=== PATIENT | female | born 2000 | race African-American/Black ===

== ENCOUNTER 2019-01-10 11:35 | Emergency (ER) | payer BC ==
[2019-01-10 14:58] LABS: Influenza A Molecular NEGATIVE (Negative); Influenza B Molecular NEGATIVE (Negative)
--- NOTE | 2019-01-10 14:58 | ED ---
Influenza-Like Illness - HPI Summary HPI Summary: Patient is a 18-year-old female who presents emergency department for on going ear/nasal congestion, headache, cough, fever, body aches times one week. Patient notes she was seen at [facility] a few days ago and prescribed Omnicef. Patient states her symptoms have persisted despite antibiotic. She is taking Tylenol or Motrin for pain and fever. She denies associated symptoms of abdominal pain, vomiting, diarrhea, neck pain, urinary symptoms. Patient notes that she had blood work done at the [facility] and was unremarkable per patient. No past medical history. Immunizations are up-to-date. Symptoms are in severity. No current modifying factors. - History of Current Complaint Chief Complaint: EDFluSymptoms Time Seen by Provider: 01/10/19 14:18 Hx Obtained From: Patient - Allergy/Home Medications Allergies/Adverse Reactions: Allergies Allergy/AdvReac Type Severity Reaction Status Date / Time Penicillins Allergy Severe Rash Verified 01/10/19 11:40 PMH/Surg Hx/FS Hx/Imm Hx Previously Healthy: Yes Infectious Disease History: No Infectious Disease History: Denies: Traveled Outside the [place] in Last 30 Days - Family History Known Family History: Positive: Non-Contributory - Social History Occupation: Student Lives: Dormitory/Roommates Alcohol Use: Occasionally Substance Use Type: Reports: None Smoking Status (MU): Never Smoked Tobacco Review of Systems Positive: Fever, Chills Positive: Ear Ache, Nasal Discharge. Negative: Sore Throat Cardiovascular: Negative Positive: Cough. Negative: Shortness Of Breath Gastrointestinal: Negative Negative: Abdominal Pain, Vomiting, Diarrhea Genitourinary: Negative Negative: dysuria Skin: Negative Negative: Rash Positive: Headache. Negative: Weakness, Paresthesia, Numbness, Syncope All Other Systems Reviewed And Are Negative: Yes Physical Exam Triage Information Reviewed: Yes Vital Signs On Initial Exam: Initial Vitals Temp Pulse Resp BP Pulse Ox 98.1 F 115 16 138/93 98 01/10/19 11:37 01/10/19 11:37 01/10/19 11:37 01/10/19 11:37 01/10/19 11:37 Vital Signs Reviewed: Yes Appearance: Positive: Well-Appearing - Pt. sitting up in bed in NAD. Appears tired but nontoxic . Skin: Positive: Warm, Dry Head/Face: Positive: Normal Head/Face Inspection Eyes: Positive: Normal ENT: Positive: Pharynx normal, Nasal congestion, Other - TMs slightly erythematous bilaterally and bulging.. Negative: Tonsillar swelling, Tonsillar exudate, Sinus tenderness Neck: Positive: Supple, Nontender, No Lymphadenopathy. Negative: Nuchal Rigidity Respiratory/Lung Sounds: Positive: Clear to Auscultation, Breath Sounds Present. Negative: Rales, Rhonchi, Wheezes Cardiovascular: Positive: Normal, RRR Musculoskeletal: Positive: Normal, Strength/ROM Intact Neurological: Positive: Normal, CN Intact II-III Psychiatric: Positive: Affect/Mood Appropriate Diagnostics - Vital Signs Vital Signs Temp Pulse Resp BP Pulse Ox 01/10/19 13:04 98.7 F 100 16 126/92 98 01/10/19 11:37 98.1 F 115 16 138/93 98 - Laboratory Lab Statement: Any lab studies that have been ordered have been reviewed, and results considered in the medical decision making process. Flu Symptom Course/Dx - Course Course Of Treatment: Patient presenting with the above symptoms. She is afebrile and well-appearing in the ER. No meningismal signs. Given ongoing cough and fever chest x-ray was ordered as well as flu swab. Chest x-ray negative for acute findings, reading per radiology. Negative flu swab. Patient does have fluid behind bilateral TMs. 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 Advised patient to continue supportive care. Follow-up with [facility]. Reevaluation 2-3 days. To return to the ER symptoms change or worsen. Patient understands and agrees with plan. - Diagnoses Differential Diagnosis/HQI/PQRI: Positive: Bronchitis, Influenza, Upper Respiratory Infection Provider Diagnoses: Viral syndrome, Serous otitis media Discharge ED - Sign-Out/Discharge Documenting (check all that apply): Patient Departure Patient Received Moderate/Deep Sedation with Procedure: No - Discharge Plan Condition: Good Disposition: HOME Patient Education Materials: Viral Syndrome (ED), Serous Otitis Media (ED) Forms: *School Release Referrals: [facility] [Outside] Additional Instructions: Call [facility] tomorrow for a close follow up appointment Increase fluids and rest Continue Tylenol/Motrin and decongestant Return to ER if symptoms change or worsen - Billing Disposition and Condition Condition: GOOD Disposition: Home
[2019-01-10 16:12] VITALS: BP 127/71
== END 2019-01-10 16:13 | disposition home or self-care (01) ==
LOC: ED 11:35
DX: B34.9 Viral infection, unspecified (principal); H65.93 Unspecified nonsuppurative otitis media, bilateral; Z88.0 Allergy status to penicillin
CPT/HCPCS: 71046; 99282

== ENCOUNTER 2019-01-17 13:40 | Emergency (ER) | payer BC ==
--- NOTE | 2019-01-17 17:34 | ED ---
Throat Pain/Nasal Congestion - HPI Summary HPI Summary: This pt is a 18 Y/O F presenting to [facility] with a CC of pain behind her R eye that has been present for 3 days, starting on 01/14/19 and is currently rated an 8/10 in severity. She states that she has nasal congestion, coughing, fluid built up behind her ears, and has had intermittent high fevers. She states that her pain increases when she bends over or rotates her head quickly. She denies any visual changes. She has a PMHx of a recent illness two weeks ago and a 10 day Tx with ABX. She has a PMHx of migraines but states that this is atypical. - History of Current Complaint Chief Complaint: EDEyeProblem Time Seen by Provider: 01/17/19 17:11 Hx Obtained From: Patient Onset/Duration: Sudden Onset, Lasting Days - 3, Still Present Severity: Severe - 8/10 Associated Signs And Symptoms: Positive: Sinus Discomfort, Nasal Discharge Cough: Nonproductive - Allergies/Home Medications Allergies/Adverse Reactions: Allergies Allergy/AdvReac Type Severity Reaction Status Date / Time Penicillins Allergy Severe Rash Verified 01/17/19 13:49 Home Medications: Home Medications Norgestimate-Ethinyl Estradiol [Lkl-Lo-Ppyevmqs 0.18/0.215/0.25 mg-25 Mcg] 1 tab PO DAILY 01/17/19 [History Confirmed 01/17/19] PMH/Surg Hx/FS Hx/Imm Hx Previously Healthy: Yes - Immunization History Immunizations Up to Date: Yes Infectious Disease History: No Infectious Disease History: Denies: Traveled Outside the [place] in Last 30 Days - Family History Known Family History: Positive: Non-Contributory - Social History Alcohol Use: Occasionally Substance Use Type: Reports: None Smoking Status (MU): Never Smoked Tobacco Review of Systems Positive: Fever Eyes: Negative - visual changes , Other - Pain behind her R eye ENT: Other - nasal congestion Positive: Ear Ache - Reports fluid build up behind her ears Positive: Cough All Other Systems Reviewed And Are Negative: Yes Physical Exam - Summary Physical Exam Summary: Appearance: The patient is well-nourished in no acute distress and in no acute pain. Skin: The skin is warm and dry and skin color reflects adequate perfusion. HEENT: The head is normocephalic and atraumatic. Her R frontal sinus does not react to light as well as the L. The conjunctivae are clear and without drainage. Nares are patent and without drainage. Mouth reveals moist mucous membranes and the throat is without erythema and exudate. The external ears are intact. The ear canals are patent and without drainage. The tympanic membranes are intact. Neck: The neck is supple with full range of motion and non-tender. There are no carotid bruits. There is no neck vein distension. Respiratory: Chest is non-tender. Lungs are clear to auscultation and breath sounds are symmetrical and equal. Cardiovascular: Heart is regular rate and rhythm. There is no murmur or rub auscultated. There is no peripheral edema and pulses are symmetrical and equal. Abdomen: The abdomen is soft and non-tender. There are normal bowel sounds heard in all four quadrants and there is no organomegaly palpated. Musculoskeletal: There is no back tenderness noted. Extremities are non-tender with full range of motion. There is good capillary refill. There is no peripheral edema or calf tenderness elicited. Neurological: Patient is alert and oriented to person, place and time. The patient has symmetrical motor strength in all four extremities. Cranial nerves are grossly intact. Deep tendon reflexes are symmetrical and equal in all four extremities. Triage Information Reviewed: Yes Vital Signs On Initial Exam: Initial Vitals Temp Pulse Resp BP Pulse Ox 98.8 F 97 16 139/94 98 01/17/19 13:45 01/17/19 13:45 01/17/19 13:45 01/17/19 13:45 01/17/19 13:45 Vital Signs Reviewed: Yes Diagnostics - Vital Signs Vital Signs Temp Pulse Resp BP Pulse Ox 01/17/19 16:05 98.7 F 83 16 123/76 98 01/17/19 13:45 98.8 F 97 16 139/94 98 - Laboratory Lab Statement: Any lab studies that have been ordered have been reviewed, and results considered in the medical decision making process. - CT Brain CT CT Interpretation Completed By: Radiologist Summary of CT Findings: No acute intracranial pathologies. ED physician has reviewed this report. EENT Course/Dx - Course Course Of Treatment: Ms. Ross presented with a headache around and behind her right eye. It's worse if she bends over. If she changes position it hurts more for a while and then improves a little bit. She is not photophobic, has not had any nausea or vomiting and does not see any halo around her vision. Her right frontal sinus did not transilluminate as well as the left. A CT scan shows fluid in the right sinus and I think this is an acute sinusitis. I will treat her with Jayleen-D and Levaquin as she has had a recent prescription of a cephalosporin. - Diagnoses Provider Diagnoses: Sinusitis Discharge ED - Sign-Out/Discharge Documenting (check all that apply): Patient Departure - discharge Patient Received Moderate/Deep Sedation with Procedure: No - Discharge Plan Condition: Stable Disposition: HOME Prescriptions: Fexofenadine/Pseudoephedrine [Jayleen-D 24 Hour Tablet] 1 each PO DAILY #10 tab.er.24h Levofloxacin TAB* [Levaquin TAB*] 750 mg PO DAILY #10 tab traMADol TAB* [Ultram*] 50 mg PO Q6HR PRN #20 tab MDD 4 PRN Reason: Pain Patient Education Materials: Sinusitis (ED) Forms: *School Release Referrals: [facility] - Carlitos BARON [Primary Care Provider] - 2 Days Additional Instructions: PLEASE FOLLOW UP WITH [facility] IN 1-3 DAYS AND RETURN TO THE EMERGENCY DEPARTMENT FOR ANY NEW OR WORSENING SYMPTOMS. - Billing Disposition and Condition Condition: STABLE Disposition: Home - Attestation Statements Document Initiated by Andreia: Yes Documenting Scribe: Josh Luciano Provider For Whom Andreia is Documenting (Include Credential): Becca Kapoor MD Scribe Attestation: IJosh, scribed for Becca Kapoor MD on 01/17/19 at 1944. Scribe Documentation Reviewed: Yes Provider Attestation: The documentation as recorded by the Josh asif accurately reflects the service I personally performed and the decisions made by me, Becca Kapoor MD Status of Scribe Document: Viewed
[2019-01-17] MEDS ORDERED: traMADol TAB* 50 MG PO ONE (18:38)
[2019-01-17 18:46] VITALS: BP 116/78
== END 2019-01-17 18:47 | disposition home or self-care (01) ==
LOC: ED 13:40
DX: J32.9 Chronic sinusitis, unspecified (principal); Z88.0 Allergy status to penicillin; Z79.899 Other long term (current) drug therapy
CPT/HCPCS: 70450; 99282; A9270-GY

== ENCOUNTER 2019-01-19 22:13 | Emergency (ER) | payer BC ==
[2019-01-20 00:27] LABS: ABS Basophils 0.1 10^3/ul (0-0.2); ABS Lymphocytes 2.1 10^3/ul (1.0-4.8); ABS Monocytes 0.6 10^3/ul (0-0.8); ABS Neutrophils 13.1 10^3/ul (1.5-7.7); Eosinophil % 0.3 %; Hematocrit 38 % (35-47); Hemoglobin 12.4 g/dL (12.0-16.0); Lymphocyte % 13.3 %; Mean Corpuscular HGB Conc 33 g/dL (31-36); Mean Corpuscular Hemoglobin 27 pg (27-31); Mean Corpuscular Volume 83 fL (80-97); Mean Platelet Volume 7.6 fL (7.4-10.4); Platelet Count 524 10^3/uL (150-450); Red Blood Count 4.58 10^6 /uL (3.70-4.87); Red Cell Distribution Width 13 % (10-15)
[2019-01-20 00:40] LABS: ALT 8 U/L (7-52); AST 13 U/L (13-39); Albumin 4.3 g/dL (3.2-5.2); Albumin/Globulin Ratio 1.2 (1-3); Alkaline Phosphatase 58 U/L (34-104); Anion Gap 9 mmol/L (2-11); BUN/Creatinine Ratio 14.7 (8-20); Blood Urea Nitrogen 10 mg/dL (6-24); C Reactive Protein 20.92 mg/L (<8.01); CO2 Carbon Dioxide 28 mmol/L (22-32); Calcium 9.8 mg/dL (8.6-10.3); Chloride 97 mmol/L (101-111); EGFR African American 134.9 (>60); EGFR Non-African American 111.5 (>60); Globulin 3.5 g/dL (2-4); Glucose 94 mg/dL (70-100); Potassium 4.1 mmol/L (3.5-5.0); Sodium 134 mmol/L (135-145); Total Protein 7.8 g/dL (6.4-8.9)
[2019-01-20 00:45] LABS: HCG Pregnancy < 0.60 mIU/mL
[2019-01-20] MEDS ORDERED: NS 0.9% 1000 ML** 1,000 ML IV ONE ×3 (01:35→02:28)
[2019-01-20] MEDS ORDERED: Ondansetron INJ* 2 MG/ML VIAL IV ONE (01:35)
[2019-01-20] MEDS ORDERED: Ondansetron ODT TAB* 4 MG PO ONE (01:37)
--- NOTE | 2019-01-20 01:38 | ED ---
Nausea/Vomiting/Diarrhea HPI - HPI Summary HPI Summary: Patient complains of right-sided headache and intermittent facial swelling 4 days with N/V 5 starting at 5 PM today. Denies trauma, fever, cough, sore throat, CP, SOB, diarrhea, abdominal pain, change in urine, change in BM. Recent diagnosis of sinusitis, taking Levaquin 2 days. States prior trial of Cefdinir 1 week provided no improvement. States symptoms of congestion and ear pain have resolved however headache is persistent. Patient currently taking Levaquin, Jayleen-D and tramadol. Patient states facial swelling starts in the afternoon and then self resolves. Patient is accompanied by mother who has recently flown out from [place] due to patient's sickness lasting 3 weeks and affecting her schoolwork. Medical history is none. - History of Current Complaint Chief Complaint: EDNauseaVomitDiarrh Stated Complaint: REACTION TO MEDICATION PER PT Time Seen by Provider: 01/20/19 01:33 Hx Obtained From: Patient, Family/Gis Professor Onset/Duration: Gradual Onset, Lasting Weeks Timing: Constant Severity Initially: Moderate Severity Currently: Moderate Pain Intensity: 7 Pain Scale Used: 0-10 Numeric Aggravating Factor(s): Nothing Alleviating Factor(s): Nothing Vomiting Frequency: Every 3-4 hours Vomiting Characteristics: Nonbilious Diarrhea Presence: No - Allergies/Home Medications Allergies/Adverse Reactions: Allergies Allergy/AdvReac Type Severity Reaction Status Date / Time Penicillins Allergy Severe Rash Verified 01/19/19 22:21 PMH/Surg Hx/FS Hx/Imm Hx Endocrine/Hematology History: Denies: Hx Anticoagulant Therapy Cardiovascular History: Denies: Hx Pacemaker/ICD History: Denies: Hx Dialysis Sensory History: Denies: Hx Eye Prosthesis Opthamlomology History: Denies: Hx Legally Blind EENT History: Denies: Hx Deafness Neurological History: Denies: Hx Dementia Infectious Disease History: No Infectious Disease History: Denies: Traveled Outside the [place] in Last 30 Days - Family History Known Family History: Positive: Non-Contributory - Social History Alcohol Use: Occasionally Substance Use Type: Reports: None Smoking Status (MU): Never Smoked Tobacco Review of Systems Constitutional: Negative Eyes: Negative ENT: Negative Cardiovascular: Negative Respiratory: Negative Positive: Vomiting, Nausea Genitourinary: Negative Musculoskeletal: Negative Skin: Negative Positive: Headache Psychological: Normal All Other Systems Reviewed And Are Negative: Yes Physical Exam - Summary Physical Exam Summary: Neuro exam normal. Neck supple. Fluid behind TMs bilaterally. ENT exam otherwise unremarkable. Triage Information Reviewed: Yes Vital Signs On Initial Exam: Initial Vitals Temp Pulse Resp BP Pulse Ox 97.6 F 84 16 141/81 100 01/19/19 22:15 01/19/19 22:15 01/19/19 22:15 01/19/19 22:15 01/19/19 22:15 Vital Signs Reviewed: Yes Appearance: Positive: Well-Appearing Skin: Positive: Warm Head/Face: Positive: Normal Head/Face Inspection Eyes: Positive: Normal ENT: Positive: Other Neck: Positive: Supple Respiratory/Lung Sounds: Positive: Clear to Auscultation Cardiovascular: Positive: Normal Abdomen Description: Positive: Nontender Musculoskeletal: Positive: Normal Neurological: Positive: Normal Psychiatric: Positive: Normal AVPU Assessment: Alert - Jackman Coma Scale Best Eye Response: 4 - Spontaneous Best Motor Response: 6 - Obeys Commands Best Verbal Response: 5 - Oriented Coma Scale Total: 15 Procedures - Sedation Patient Received Moderate/Deep Sedation with Procedure: No Diagnostics - Vital Signs Vital Signs Temp Pulse Resp BP Pulse Ox 01/20/19 00:30 98.0 F 75 16 113/66 98 01/19/19 22:15 97.6 F 84 16 141/81 100 - Laboratory Lab Results: Lab Results 01/20/19 01/20/19 Range/Units 00:03 00:03 WBC 16.0 H (3.5-10.8) 10^3/uL RBC 4.58 (3.70-4.87) 10^6 /uL Hgb 12.4 (12.0-16.0) g/dL Hct 38 (35-47) % MCV 83 (80-97) fL MCH 27 (27-31) pg MCHC 33 (31-36) g/dL RDW 13 (10-15) % Plt Count 524 H (150-450) 10^3/uL MPV 7.6 (7.4-10.4) fL Neut % (Auto) 82.1 % Lymph % (Auto) 13.3 % Ashley % (Auto) 4.0 % Eos % (Auto) 0.3 % Baso % (Auto) 0.3 % Absolute Neuts (auto) 13.1 H (1.5-7.7) 10^3/ul Absolute Lymphs (auto) 2.1 (1.0-4.8) 10^3/ul Absolute Monos (auto) 0.6 (0-0.8) 10^3/ul Absolute Eos (auto) 0.0 (0-0.6) 10^3/ul Absolute Basos (auto) 0.1 (0-0.2) 10^3/ul Absolute Nucleated RBC 0.0 10^3/ul Nucleated RBC % 0.0 Sodium 134 L (135-145) mmol/L Potassium 4.1 (3.5-5.0) mmol/L Chloride 97 L (101-111) mmol/L Carbon Dioxide 28 (22-32) mmol/L Anion Gap 9 (2-11) mmol/L BUN 10 (6-24) mg/dL Creatinine 0.68 (0.51-0.95) mg/dL Est GFR ( Amer) 134.9 (>60) Est GFR (Non-Af Amer) 111.5 (>60) BUN/Creatinine Ratio 14.7 (8-20) Glucose 94 (70-100) mg/dL Calcium 9.8 (8.6-10.3) mg/dL Total Bilirubin 0.20 (0.2-1.0) mg/dL AST 13 (13-39) U/L ALT 8 (7-52) U/L Alkaline Phosphatase 58 (34-104) U/L C-Reactive Protein 20.92 H (<8.01) mg/L Total Protein 7.8 (6.4-8.9) g/dL Albumin 4.3 (3.2-5.2) g/dL Globulin 3.5 (2-4) g/dL Albumin/Globulin Ratio 1.2 (1-3) Beta HCG, Quant < 0.60 mIU/mL Result Diagrams: 01/20/19 00:03 01/20/19 00:03 Lab Statement: Any lab studies that have been ordered have been reviewed, and results considered in the medical decision making process. Naus/Vom/Diarrhea Course/Dx - Course Course Of Treatment: Patient complains of right-sided headache and intermittent facial swelling 4 days with N/V 5 starting at 5 PM today. Denies trauma, fever, cough, sore throat, CP, SOB, diarrhea, abdominal pain, change in urine, change in BM. Recent diagnosis of sinusitis, taking Levaquin 2 days. States prior trial of Cefdinir 1 week provided no improvement. States symptoms of congestion and ear pain have resolved however headache is persistent. Patient currently taking Levaquin, Jayleen-D and tramadol. Patient states facial swelling starts in the afternoon and then self resolves. Patient is accompanied by mother who has recently flown out from [place] due to patient' s sickness lasting 3 weeks and affecting her schoolwork. Medical history is none. Vital signs within normal limits. WBC 16. CRP 20. Labs otherwise unremarkable. Flu negative. Ashley negative. Mother very anxious over patient' s condition. Patient and mother advised to follow-up with ENT for persistent symptoms despite trials of antibiotics. Mom and patient understand and approve plan. Patient headache and nausea improved with migraine cocktail. 2 L normal saline given. - Differential Dx/Diagnosis Provider Diagnosis: Sinusitis, Headache, Nausea & vomiting Condition At Discharge: Stable Discharge ED - Sign-Out/Discharge Documenting (check all that apply): Patient Departure, Sign-Out Patient Signing out patient TO: Ye Ireland - Discharge Plan Condition: Stable Disposition: HOME Prescriptions: Promethazine TAB* [Phenergan TAB*] 25 mg PO Q6H PRN #14 tab PRN Reason: Nausea Patient Education Materials: Sinusitis (ED), Acute Headache (ED), Acute Nausea and Vomiting (ED) Forms: *School Release Referrals: [facility] - Carlitos BARON [Primary Care Provider] - Manjit Loza MD [Medical Doctor] - Additional Instructions: Take Phenergan for nausea as directed. Call Dr. Loza's office tomorrow morning to follow-up for further evaluation of headaches and sinus infection. - Billing Disposition and Condition Condition: STABLE Disposition: Home - Attestation Statements Provider Attestation: I was available for consult. This patient was seen by the OSBALDO. The patient was not presented to, seen by, or examined by me. Ye Ireland MD
[2019-01-20] MEDS ORDERED: Ketorolac INJ* 30 MG/ML 1 ML VIAL IV ONE (02:28)
[2019-01-20] MEDS ORDERED: diPHENhydraMINE IV* 50 MG/ML 1 ml VIAL (BENADRYL) IV ONE (02:28)
[2019-01-20 04:30] LABS: Influenza A Molecular NEGATIVE (Negative); Influenza B Molecular NEGATIVE (Negative)
[2019-01-20 07:47] VITALS: BP 116/69
== END 2019-01-20 07:47 | disposition home or self-care (01) ==
LOC: ED 22:13
DX: J32.9 Chronic sinusitis, unspecified (principal); R51 Headache; R11.2 Nausea with vomiting, unspecified; Z88.0 Allergy status to penicillin
CPT/HCPCS: 36415; 80053; 84702; 85025; 86140; 86308; 96360; 96361; 99282; A9270-GY; J1200; J1885